=== PATIENT | female | born 1985 | race African-American/Black ===

== ENCOUNTER 2016-11-26 19:39 | Emergency (ER) | payer BC, OTHER ==
[~2016-11-26] VITALS: Ht 154.9 cm; Wt 102.1 kg
[2016-11-26] MEDS ORDERED: IBUPROFEN 600600 M1 PO (20:23)
[2016-11-26 20:35] VITALS: BP 147/101
== END 2016-11-26 20:35 | disposition home or self-care (01) ==
LOC: ER 19:39
DX: S60.221A Contusion of right hand, initial encounter (principal); I10 Essential (primary) hypertension; W23.0XXA Caught, crushed, jammed, or pinched between moving objects, initial encounter; Y93.89 Activity, other specified; Y92.89 Other specified places as the place of occurrence of the external cause; Y99.8 Other external cause status

== ENCOUNTER 2016-12-06 19:22 | Emergency (ER) | payer BC, OTHER ==
[~2016-12-06] VITALS: Ht 154.9 cm; Wt 99.3 kg
--- NOTE | ~2016-12-06 | EKG ---
[address] [address] ELECTROCARDIOGRAM REPORT Name: JAMES CARDOZA Room #: [facility]#: [id number] Admission: 12/06/16 Attend Phys: Discharge: 12/06/16 Date of : 87 Report #: [id number] THIS REPORT FOR: //name// [facility] ED Test Date: 2016-12-06 Test Time: 19:35:35 Pat Name: JAMES CARDOZA Department: Room: Gender: F Animal Sticker: ILENE : 1985 Requested By: Luz Marina Olivares Order Number: [id number] MD: Bert Zamora Measurements Intervals [place] Rate: 98 P: 45 UT: 145 QRS: 22 QRSD: 87 T: 3 QT: 351 QTc: 449 Interpretive Statements Sinus rhythm No previous ECG available for comparison Electronically Signed On 12-07-2016 12:43:44 CDT by Bert Zamora [email or web address] <ELECTRONICALLY SIGNED> By: Bert Zamora MD 12/07/16 1243 1935 193 Bert Zamora MD /EPI
[~2016-12-06 19:22] MED LIST: IBUPROFEN 600600 M1 PO
[2016-12-06] MEDS ORDERED: NAPROSYN500 MG PO (21:41)
[2016-12-06 22:39] VITALS: BP 144/97
== END 2016-12-06 22:40 | disposition home or self-care (01) ==
LOC: ER 19:22
DX: R07.89 Other chest pain (principal); I10 Essential (primary) hypertension